=== PATIENT | male | born 1955 | race Caucasian/White ===

== ENCOUNTER 2018-11-01 15:38 | Emergency (ER) | payer OTHER ==
[2018-11-01 15:42] VITALS: BMI 37.0
--- NOTE | 2018-11-01 16:36 | PDOC ---
History of Present Illness - General Chief Complaint: Shortness of Breath Stated Complaint: SOB Time Seen by Provider: 11/01/18 16:16 History Source: Patient Exam Limitations: No Limitations - History of Present Illness Initial Comments: 11/01/18 16:26 63 yo M with a hx of DM, anxiety disorder, and PTSD presents to the emergency department with SOB for the past 1 week. Denies worsening throughout the week. Endorses frequent anxiety attacks over the past few months and only uses xanax on a daily basis. Denies chest pain. Denies pleuritic chest pain. Denies the following: hx of asthma, hx of COPD, fever, chills, nausea, vomiting, pain radiating to back, abdominal pain, lightheadedness, dizziness, diarrhea, dysuria , hematuria, and leg swelling. Endorses anxiety and right hip pain with right anterior thigh pain that began 2 days ago. Allergies: NKDA Social: Denies tobacco and alcohol. Uses marijuana weekly. Shx: multiple msk surgeries including right hip replacement. Past History - Past Medical History Allergies/Adverse Reactions: Allergies Allergy/AdvReac Type Severity Reaction Status Date / Time No Known Allergies Allergy Verified 11/02/18 11:40 Home Medications: Ambulatory Orders Alprazolam [Xanax] 1 mg PO DAILY 02/25/14 Ibuprofen [Motrin] 800 mg PO TID #20 tablet 02/25/14 metFORMIN HCL [Glucophage -] 500 mg PO DAILY 02/25/14 Diclofenac Sodium [Voltaren] 4 gm TP Q6H #1 gel..gram. 11/02/18 Oxycodone HCl/Acetaminophen [Percocet 5-325 mg Tablet] 1 tab PO Q6H PRN #5 tablet MDD 4 11/02/18 COPD: No Diabetes: Yes - Immunization History Immunization Up to Date: Yes - Suicide/Smoking/Psychosocial Hx Smoking History: Current every day smoker Have you smoked in the past 12 months: Yes Number of Cigarettes Smoked Daily: 2 Information on smoking cessation initiated: No Hx Alcohol Use: No Drug/Substance Use Hx: Yes Substance Use Type: None Review of Systems - Review of Systems Able to Perform ROS?: Yes Is the patient limited Irish proficient: No Constitutional: No: Chills, Diaphoresis, Fever, Weakness HEENTM: No: Eye Pain, Ear Pain, Nose Pain, Throat Pain, Mouth Pain Respiratory: Yes: Cough, Shortness of Breath. No: Hemoptysis Cardiac (ROS): No: Chest Pain, Edema, Lightheadedness, Palpitations, Syncope, Chest Tightness ABD/GI: No: Constipated, Diarrhea, Nausea, Vomiting : No: Burning, Dysuria, Hematuria, Incontinence, Pain Musculoskeletal: Yes: Joint Pain (right hip). No: Back Pain, Neck Pain Integumentary: No: Bruising, Erythema, Rash Neurological: No: Headache, Numbness, Tingling, Tremors Psychiatric: Yes: Anxiety, Depression. No: Stressors Endocrine: No: Unexplained Weight Gain Hematologic/Lymphatic: No: Anemia *Physical Exam - Vital Signs Last Vital Signs Temp Pulse Resp BP Pulse Ox 97.9 F 89 30 H 157/100 99 11/01/18 15:39 11/01/18 15:39 11/01/18 15:39 11/01/18 15:39 11/01/18 15:39 - Physical Exam General Appearance: Yes: Nourished, Appropriately Dressed, Other (tachypnea). No: Apparent Distress, Intoxicated HEENT: positive: EOMI, SOLE, Normal Voice, Symmetrical, Pharynx Normal, Hearing Grossly Normal. negative: Pale Conjunctivae, Scleral Icterus (R), Scleral Icterus (L), Muffled/Hoarse voice, Pharyngeal Erythema, Tonsillar Exudate, Tonsillar Erythema, Nasal Congestion, Rhinorrhea, Excessive drooling Neck: positive: Trachea midline, Supple. negative: Tender, Lymphadenopathy (R) , Lymphadenopathy (L), Tender lateral, Tender midline Respiratory/Chest: positive: Lungs Clear, Normal Breath Sounds, Rapid RR. negative: Chest Tender, Respiratory Distress, Accessory Muscle Use, Crackles, Rales, Rhonchi, Stridor, Wheezing, Plerual Rub Cardiovascular: positive: Regular Rhythm, Regular Rate, S1, S2. negative: Systolic Murmur Gastrointestinal/Abdominal: positive: Normal Bowel Sounds, Flat, Soft. negative : Tender, Distended, Guarding, Rebound Lymphatic: negative: Adenopathy Musculoskeletal: positive: Normal Inspection. negative: CVA Tenderness, Vertebral Tenderness Extremity: positive: Normal Capillary Refill, Normal Inspection, Normal Range of Motion, Tender Integumentary: positive: Normal Color, Dry, Warm Neurologic: positive: visual merchandising associate II-XII NML intact, Fully Oriented, Alert, Normal Mood/ Affect, Normal Response, Motor Strength 5/5. negative: EOM Palsy, Facial Droop ED Treatment Course - LABORATORY CBC & Chemistry Diagram: 11/01/18 16:45 11/01/18 16:45 - RADIOLOGY Radiology Studies Ordered: Category Date Time Status CHEST X-RAY PORTABLE* [RAD] Stat Radiology 11/01/18 16:11 Ordered *DC/Admit/Observation/Transfer Diagnosis at time of Disposition: Shortness of breath - Discharge Dispostion Disposition: HOME Decision to Admit order: No - Referrals Referrals: Kush Curran MD [Primary Care Provider] - Yoshi Ray MD [Staff Physician] - - Patient Instructions Printed Discharge Instructions: Generalized Anxiety Disorder, Anxiety Disorders , DI for Anxiety -- Adult Additional Instructions: You were seen in the emergency department for your shortness of breath. Please follow up with your primary medical doctor for evaluation for psychiatry to help with the anxiety. Please return to the emergency department if you have worsening symptoms. Thank you. - Post Discharge Activity Forms/Work/School Notes: Back to Work
[2018-11-01 16:58] LABS: BASO % 0.5 % (0-2.0); EOS % 0.8 % (0-4.5); HEMOGLOBIN 14.1 GM/dL (11.7-16.9); LYMPH % 28.1 % (8-40); MCHC 33.7 g/dl (32.0-35.9); MEAN PLT VOLUME 9.3 fl (7.5-11.1); MONO % 8.5 % (3.8-10.2); NEUT % 62.1 % (42.8-82.8); PLATELET COUNT 241 K/MM3 (134-434); RBC 4.89 M/mm3 (4.00-5.60); RDW 13.7 % (11.9-15.9); WHITE BLOOD COUNT 8.7 K/mm3 (4.0-10.0)
[2018-11-01 17:00] LABS: ARTERIAL BLD GAS O2 SATURATION 87.2 % (95-98); ARTERIAL BLOOD GAS BASE EXCESS 1.5 meq/l (-2-2); ARTERIAL BLOOD GAS PCO2 40.1 mmHg (35-45); ARTERIAL BLOOD GAS PO2 53.9 mmHg (80-105); ARTERIAL BLOOD GAS pH 7.42 (7.35-7.45); CARBOXYHEMOGLOBIN 1.4 % (0-2)
[2018-11-01 17:19] LABS: ALBUMIN 4.3 g/dl (3.4-5.0); BILIRUBIN,TOTAL 0.3 mg/dL (0.2-1); BLOOD UREA NITROGEN 15.3 mg/dL (7-18); CALCIUM 9.9 mg/dL (8.5-10.1); POTASSIUM 4.1 mmol/L (3.5-5.1); TOT PROT 7.6 g/dl (6.4-8.2)
--- NOTE | 2018-11-01 17:27 | PDOC ---
Documentation entered by Yanet Rocha SCRIBE, acting as scribe for Joey Cole MD. Joey Cole MD: This documentation has been prepared by the Aj cheung Xhesika, SCRIBE, under my direction and personally reviewed by me in its entirety. I confirm that the documentation accurately reflects all work, treatment, procedures, and medical decision making performed by me. Attending Attestation - Resident Resident Name: Glenn Riley - ED Attending Attestation I have performed the following: I have examined & evaluated the patient, The case was reviewed & discussed with the resident, I agree w/resident's findings & plan, Exceptions are as noted - HPI HPI: 11/01/18 17:02 The patient is a 63 year old male with a significant PMH of DM, anxiety disorder , and PTSD who presents to the emergency department with shortness of breath x 3 days. Pt states that he has been feeling short of breath at rest, particularly when he lies down. He denies any chest pain. States that today, he felt like his breathing was getting worse. He states that he is unable to draw in a deep breath. Denies F/C. Denies cough. Endorses nasal congestion. Pt also endorses R thigh pain x several days. He states the pain radiates from his thigh down to his knee. Denies any leg swelling. The patient denies chest pain, headache and dizziness. Denies fever, chills, cough, nausea, vomiting, diarrhea and constipation. Denies dysuria, frequency, urgency and hematuria. Allergies: NKDA Social history: current everyday smoker. PCP: Dr. Curran - Physicial Exam PE: 11/01/18 17:03 GENERAL: Awake, alert, and fully oriented, in no acute distress. HEAD: No signs of trauma EYES: PERRLA, EOMI, sclera anicteric, conjunctiva clear ENT: Auricles normal inspection, hearing grossly normal, nares patent, oropharynx clear without exudates. Moist mucosa NECK: Nontender, no stepoffs, Normal ROM, supple, no lymphadenopathy, JVD, or masses LUNGS: Breath sounds equal, clear to auscultation bilaterally. No wheezes, and no crackles HEART: Regular rate and rhythm, normal S1 and S2, no murmurs, rubs or gallops ABDOMEN: Soft, nontender, normoactive bowel sounds. No guarding, no rebound. No masses EXTREMITIES: Normal range of motion, no edema. No clubbing or cyanosis. No cords, erythema, or tenderness NEUROLOGICAL: Cranial nerves II through XII intact. 5/5 strength and sensation in all extremities, Normal speech, normal gait, normal cerebellar function SKIN: Warm, Dry, normal turgor, no rashes or lesions noted. - Medical Decision Making 11/01/18 17:29 63 M with SOB and R thigh pain. Pt with stable vitals, clear lungs. Will evaluate for PE given concurrent R thigh pain. Will also r/o ACS with serial trops. EKG is nonischemic. - Labs, trop, Ddimer - CXR - CTA if indicated 11/01/18 18:09 Ddimer elevated Labs otherwise wnl CTA ordered Pt signed out to Dr. Wooten at 7PM, pending CT and re-evaluation.
[2018-11-01 17:42] VITALS: TEMP 97.7
[2018-11-01 18:05] LABS: INR 1.03 (0.83-1.09); PROTHROMBIN TIME (PATIENT) 12.2 SEC (9.7-13.0)
[2018-11-01] MEDS ORDERED: morphine CARPU-JECT 4 MG/1 ML DISP.SYRIN IVPUSH ONE (18:49)
[2018-11-01] MEDS ORDERED: morphine SULFATE 4 MG/ML VIAL ONE (18:58)
[2018-11-01] MEDS ORDERED: LORazepam 2 MG/ML SDV VIAL ONE (18:59)
[2018-11-01] MEDS ORDERED: morphine CARPU-JECT 2 MG/1 ML DISP.SYRIN IVPUSH ONE (20:31)
[2018-11-01] MEDS ORDERED: MORPHINE SULFATE 2 MG/ML VIAL ONE (20:34)
[2018-11-01] MEDS ORDERED: METHOCARBAMOL 500 MG TABLET PO ONE (21:16)
[2018-11-01] MEDS ORDERED: METHOCARBAMOL 500 MG TABLET ONE (21:56)
[2018-11-02 06:03] VITALS: BP 166/85; PULSE 76
--- NOTE | 2018-11-03 10:36 | EKG ---
Test Reason : Blood Pressure : / mmHG Vent. Rate : 070 BPM Atrial Rate : 070 BPM P-R Int : 164 ms QRS Dur : 094 ms QT Int : 398 ms P-R-T Axes : 026 -04 016 degrees QTc Int : 429 ms SINUS RHYTHM WITH PREMATURE SUPRAVENTRICULAR COMPLEXES OTHERWISE NORMAL ECG NO PREVIOUS ECGS AVAILABLE Confirmed by Rajani Rodríguez ([id number]) on 11/03/2018 10:36:30 AM Referred By: Confirmed By:Rajani Rodríguez
== END 2018-11-01 22:15 | disposition home or self-care (01) ==
LOC: JER 15:38
PROC: 3E033NZ Introduction of Analgesics, Hypnotics, Sedatives into Peripheral Vein, Percutaneous Approach (ICD-10-PCS; principal; 2018-11-01)
PROC: 3E033NZ Introduction of Analgesics, Hypnotics, Sedatives into Peripheral Vein, Percutaneous Approach (ICD-10-PCS; 2018-11-01)
DX: R06.02 Shortness of breath (principal); M79.651 Pain in right thigh; F41.9 Anxiety disorder, unspecified; F43.10 Post-traumatic stress disorder, unspecified; E11.9 Type 2 diabetes mellitus without complications; Z79.84 Long term (current) use of oral hypoglycemic drugs; F17.210 Nicotine dependence, cigarettes, uncomplicated
CPT/HCPCS: 36415; 36600; 71045-TC-FY; 71260-TC; 73523-TC-FY; 80053; 82375; 82550; 82553; 82803; 83050; 83690; 83880; 84484; 85025; 85379; 85610; 93005; 93010; 93970-TC; 96372; 96374; 96375; 96376; 99285-25

== ENCOUNTER 2018-11-02 11:37 | Emergency (ER) | payer OTHER | END 2018-11-02 12:27 | disposition home or self-care (01) | LOC: JERFT 11:37 ==

== ENCOUNTER 2020-06-18 13:18 | Emergency (ER) | payer OTHER ==
[2020-06-18] MEDS ORDERED: BAMLANIVIMAB 700 MG, ETESEVIMAB 1,400 MG in SODIUM CHLORIDE 250 ML IVPB ONE (13:25)
[2020-06-18 13:43] VITALS: PULSE 89; BMI 29.2
[2020-06-18 14:03] LABS: BASO % 0.2 % (0-2.0); EOS % 0.7 % (0-4.5); HEMATOCRIT 47.9 % (35.4-49); HEMOGLOBIN 16.3 GM/dL (11.7-16.9); LYMPH % 21.3 % (8-40); MCH 29.7 pg (25.7-33.7); MEAN CELL VOLUME 87.2 fl (80-96); MEAN PLT VOLUME 8.8 fl (7.5-11.1); MONO % 10.3 % (3.8-10.2); NEUT % 67.5 % (42.8-82.8); PLATELET COUNT 270 K/MM3 (134-434); RDW 13.5 % (11.9-15.9)
[2020-06-18 14:25] LABS: POTASSIUM 4.3 mmol/L (3.5-5.1)
[2020-06-18 14:27] LABS: ALBUMIN 4.5 g/dl (3.4-5.0); BLOOD UREA NITROGEN 22.3 mg/dL (7-18); CALCIUM 10.6 mg/dL (8.5-10.1)
[2020-06-18 14:30] LABS: CREATININE 1.1 mg/dL (0.55-1.3)
[2020-06-18 14:32] LABS: BILIRUBIN,TOTAL 0.4 mg/dL (0.2-1); TOT PROT 8.5 g/dl (6.4-8.2)
[2020-06-18 15:37] VITALS: BP 140/86; TEMP 98.7
== END 2020-06-18 17:12 | disposition home or self-care (01) ==
LOC: JCOVINFU 13:18
DX: U07.1 COVID-19 (principal)
CPT/HCPCS: 36415; 71046-TC-FY; 80053; 85025; 99284-25; M0239; Q0239; Q0245